=== PATIENT | male | born 1960 | race Caucasian/White ===

== ENCOUNTER → 2017-02-04 | Outpatient (CLI) | payer BC ==
[~2017-02-04] MED LIST: BUPR300T34 PO; DIVA125C5 PO; QUET1TAB8 PO
== END ==
LOC: M LAB 16:00
PROVIDERS: ATTEND Psychiatry & Neurology Psychiatry
DX: Z53.8 Procedure and treatment not carried out for other reasons (principal)

== ENCOUNTER → 2017-02-08 | Outpatient (CLI) | payer BC ==
[2017-02-08 12:14] LABS: MEAN CORPUSCULAR HEMOGLOBIN 32.9 pg (27.0-33.0); MEAN CORPUSCULAR HGB CONC 34.4 g/dl (32.0-36.5); MEAN CORPUSCULAR VOLUME 95.7 fl (80.0-96.0); RED CELL DISTRIBUTION WIDTH 12.3 % (11.5-14.5); WHITE BLOOD COUNT 2.9 K/mm3 (4.0-10.0)
[2017-02-08 12:28] LABS: ALBUMIN 3.5 GM/DL (3.2-5.2); BILIRUBIN,DIRECT 0.1 MG/DL (0.0-0.2); BILIRUBIN,TOTAL 0.4 MG/DL (0.2-1.0)
== END ==
LOC: M LAB 11:30
PROVIDERS: ATTEND Psychiatry & Neurology Psychiatry
DX: Z79.899 Other long term (current) drug therapy (principal)

== ENCOUNTER → 2017-07-21 | Outpatient (REF) | payer BC ==
[2017-07-21 21:19] LABS: REASON FOR REVIEW COMPREHENSIVE REVIEW
== END ==
LOC: M LAB REF 17:16
PROVIDERS: ATTEND Internal Medicine Medical Oncology
DX: D72.819 Decreased white blood cell count, unspecified (principal)

== ENCOUNTER → 2018-07-04 | Outpatient (CLI) | payer BC ==
[2018-07-04 10:59] LABS: HEMATOCRIT 40.1 % (42.0-52.0); HEMOGLOBIN 13.3 g/dl (13.5-17.5); MEAN CORPUSCULAR HEMOGLOBIN 31.6 pg (27.0-33.0); MEAN CORPUSCULAR HGB CONC 33.2 g/dl (32.0-36.5); MEAN CORPUSCULAR VOLUME 95.2 fl (80.0-96.0); PLATELET COUNT, AUTOMATED 258 10^3/uL (150-450); RED BLOOD COUNT 4.21 10^6/uL (4.30-6.10); RED CELL DISTRIBUTION WIDTH 12.9 % (11.5-14.5)
[2018-07-04 11:23] LABS: ALBUMIN 3.7 GM/DL (3.2-5.2); ALBUMIN/GLOBULIN RATIO 1.16 (1.00-1.93); ALKALINE PHOSPHATASE 77 U/L (45-117); ALT/SGPT 35 U/L (12-78); AST/SGOT 15 U/L (7-37); BILIRUBIN,DIRECT < 0.1 MG/DL (0.0-0.2); BILIRUBIN,TOTAL 0.2 MG/DL (0.2-1.0); CHOLESTEROL LEVEL 192 MG/DL (<200); CHOLESTEROL RISK RATIO 5.818 (<5); GLUCOSE, FASTING 82 MG/DL (70-100); HDL CHOLESTEROL 33 MG/DL (>40); LDL CHOLESTEROL 133 MG/DL (<100); NON-HDL-C 159 MG/DL; TOTAL PROTEIN 6.9 GM/DL (6.4-8.2); TRIGLYCERIDES LEVEL 130 MG/DL (<150); VALPROIC ACID (DEPAKOTE) 78.2 UG/ML (50.0-100.0)
[2018-07-04 14:06] LABS: ESTIMATED AVERAGE GLUCOSE 111 MG/DL (60-110); HEMOGLOBIN A1c 5.5 %
== END ==
LOC: M LAB 10:18
DX: Z51.81 Encounter for therapeutic drug level monitoring (principal); Z79.899 Other long term (current) drug therapy
CPT/HCPCS: 82947

== ENCOUNTER → 2018-11-16 | Outpatient (CLI) | payer BC ==
[~2018-11-16] MED LIST changes: -DIVA125C5 PO; +DIVA1CAP PO; +GASTROGRAFIN SOLUTION 30ML (Q9963) As Ordered ONE; +ISOVUE-370 76% 100ML VIAL (Q9967) As Ordered ONE; +ZYLO300T6 PO
--- NOTE | 2018-11-17 07:21 | REP ---
Clinical: History of lymphoproliferative disease. Technique: Axial contrast enhanced images from the lung bases to the pubic symphysis using oral (per protocol) and 100 ml Isovue 370 intravenous contrast material with precontrast images of the abdomen as well as coronal and sagittal re-formations. Comparison: None. Findings: Lung bases are clear. Visualized heart and pericardium are normal. Liver, spleen, pancreas, gallbladder, and bilateral adrenal glands appear normal. Right kidney includes 1 mm nonobstructing calculus (image 42). Left kidney includes suspected 1 cm peripelvic cyst as well as 2 cm exophytic lateral cortical cyst. The enteric system is without obstruction or acute inflammatory process. Colonic diverticula noted without acute diverticulitis. Pelvis demonstrates normal bladder and age appropriate prostate/seminal vesicles. No ascites. 2.5 cm fat containing periumbilical hernia identified along with small fat containing left inguinal hernia. No ascites. No free air. No adenopathy. Abdominal aorta without aneurysm or dissection. Musculoskeletal structures are intact without focal osseous abnormality. Impression: 1. No evidence for mass lesion or adenopathy. 2. Nonacute renal findings as described above. 3. Scattered colonic diverticula without acute diverticulitis. 4. Fat containing periumbilical and small left inguinal hernias noted. Electronically Signed by Jermaine Ruth MD 11/17/2018 07:12 A
== END ==
LOC: M RAD 12:37
PROVIDERS: ATTEND Internal Medicine Hematology & Oncology
DX: D47.9 Neoplasm of uncertain behavior of lymphoid, hematopoietic and related tissue, unspecified (principal)
CPT/HCPCS: 74178; Q9963; Q9967

== ENCOUNTER → 2019-01-27 | Outpatient (CLI) | payer BC ==
[~2019-01-27] MED LIST changes: -GASTROGRAFIN SOLUTION 30ML (Q9963) As Ordered ONE; -ISOVUE-370 76% 100ML VIAL (Q9967) As Ordered ONE
[2019-01-27 17:09] LABS: ALBUMIN 3.7 GM/DL (3.2-5.2); ALT/SGPT 28 U/L (12-78); BILIRUBIN,TOTAL 0.3 MG/DL (0.2-1.0); BLOOD UREA NITROGEN 13 MG/DL (7-18); CALCIUM LEVEL 8.7 MG/DL (8.5-10.1); CARBON DIOXIDE LEVEL 29 MEQ/L (21-32); CHLORIDE LEVEL 104 MEQ/L (98-107); CHOLESTEROL LEVEL 182 MG/DL (<200); CHOLESTEROL RISK RATIO 5.687 (<5); CREATININE FOR GFR 1.01 MG/DL (0.70-1.30); GLOMERULAR FILTRATION RATE > 60.0 (>56); GLUCOSE, FASTING 76 MG/DL (70-100); HDL CHOLESTEROL 32 MG/DL (>40); LDL CHOLESTEROL 126 MG/DL (<100); NON-HDL-C 150 MG/DL; POTASSIUM SERUM 4.2 MEQ/L (3.5-5.1); SODIUM LEVEL 139 MEQ/L (136-145); TOTAL PROTEIN 7.4 GM/DL (6.4-8.2); TRIGLYCERIDES LEVEL 122 MG/DL (<150); URIC ACID 7.6 MG/DL (3.5-7.2)
[2019-01-27 18:40] LABS: HEMOGLOBIN A1c 5.5 %
== END ==
LOC: M LAB 15:31
PROVIDERS: ATTEND Family Medicine
DX: Z13.1 Encounter for screening for diabetes mellitus (principal); Z13.220 Encounter for screening for lipoid disorders; Z12.5 Encounter for screening for malignant neoplasm of prostate; E79.0 Hyperuricemia without signs of inflammatory arthritis and tophaceous disease
CPT/HCPCS: 36415; 80053; 80061; 83036; 84550; G0103

== ENCOUNTER → 2019-07-06 | Outpatient (CLI) | payer BC ==
[2019-07-06 15:06] LABS: HEMATOCRIT 40.8 % (42.0-52.0); HEMOGLOBIN 13.9 g/dl (13.5-17.5); MEAN CORPUSCULAR HEMOGLOBIN 32.1 pg (27.0-33.0); MEAN CORPUSCULAR HGB CONC 34.1 g/dl (32.0-36.5); MEAN CORPUSCULAR VOLUME 94.2 fl (80.0-96.0); PLATELET COUNT, AUTOMATED 248 10^3/uL (150-450); RED BLOOD COUNT 4.33 10^6/uL (4.30-6.10); WHITE BLOOD COUNT 3.5 10^3/uL (4.0-10.0)
[2019-07-06 15:17] LABS: ALBUMIN 3.9 GM/DL (3.2-5.2); ALT/SGPT 44 U/L (12-78); BILIRUBIN,DIRECT < 0.1 MG/DL (0.0-0.2); BILIRUBIN,TOTAL 0.4 MG/DL (0.2-1.0); CHOLESTEROL LEVEL 246 MG/DL (<200); CHOLESTEROL RISK RATIO 7.687 (<5); GLUCOSE, FASTING 81 MG/DL (70-100); HDL CHOLESTEROL 32 MG/DL (>40); LDL CHOLESTEROL 147 MG/DL (<100); NON-HDL-C 214 MG/DL; TOTAL PROTEIN 7.3 GM/DL (6.4-8.2); TRIGLYCERIDES LEVEL 334 MG/DL (<150); VALPROIC ACID (DEPAKOTE) 67.8 UG/ML (50.0-100.0)
[2019-07-06 15:47] LABS: HEMOGLOBIN A1c 5.7 %
== END ==
LOC: M LAB 14:12
PROVIDERS: ATTEND Psychiatry & Neurology Psychiatry
DX: Z51.81 Encounter for therapeutic drug level monitoring (principal); Z79.899 Other long term (current) drug therapy

== ENCOUNTER → 2020-03-25 | Outpatient (CLI) | payer BC ==
[~2020-03-25] MED LIST changes: -BUPR300T34 PO; +BUPR300T92 PO; +QUET100T2 PO; -QUET1TAB8 PO
[2020-03-25 18:48] LABS: ALBUMIN 3.8 GM/DL (3.2-5.2); ALT/SGPT 25 U/L (12-78); BILIRUBIN,TOTAL 0.3 MG/DL (0.2-1.0); BLOOD UREA NITROGEN 18 MG/DL (7-18); CALCIUM LEVEL 9.1 MG/DL (8.5-10.1); CARBON DIOXIDE LEVEL 30 MEQ/L (21-32); CHLORIDE LEVEL 108 MEQ/L (98-107); CHOLESTEROL LEVEL 197 MG/DL (<200); CHOLESTEROL RISK RATIO 6.566 (<5); CREATININE FOR GFR 0.95 MG/DL (0.70-1.30); CREATININE, URINE 92.8 MG/DL; FREE T4 0.96 NG/DL (0.76-1.46); GLOMERULAR FILTRATION RATE > 60.0 (>56); GLUCOSE, FASTING 95 MG/DL (70-100); HDL CHOLESTEROL 30 MG/DL (>40); LDL CHOLESTEROL 136 MG/DL (<100); MALB URINE SIEMENS < 5.0 MG/L; MAU/CREAT RATIO 5.3 MCG/MG (0.0-30.0); NON-HDL-C 167 MG/DL; POTASSIUM SERUM 4.4 MEQ/L (3.5-5.1); SODIUM LEVEL 143 MEQ/L (136-145); TOTAL PROTEIN 7.3 GM/DL (6.4-8.2); TRIGLYCERIDES LEVEL 157 MG/DL (<150)
== END ==
LOC: M WUC 10:07
PROVIDERS: ATTEND Nurse Practitioner Family
DX: E78.00 Pure hypercholesterolemia, unspecified (principal); E79.0 Hyperuricemia without signs of inflammatory arthritis and tophaceous disease; E66.09 Other obesity due to excess calories

== ENCOUNTER → 2020-06-17 | Outpatient (CLI) | payer BC ==
[2020-06-17 12:58] LABS: HEMATOCRIT 42.3 % (42.0-52.0); HEMOGLOBIN 13.8 g/dl (13.5-17.5); MEAN CORPUSCULAR HEMOGLOBIN 31.5 pg (27.0-33.0); MEAN CORPUSCULAR HGB CONC 32.6 g/dl (32.0-36.5); MEAN CORPUSCULAR VOLUME 96.6 fl (80.0-96.0); PLATELET COUNT, AUTOMATED 211 10^3/uL (150-450); RED BLOOD COUNT 4.38 10^6/uL (4.30-6.10); WHITE BLOOD COUNT 2.9 10^3/uL (4.0-10.0)
[2020-06-17 13:01] LABS: ALBUMIN 3.5 GM/DL (3.2-5.2); ALT/SGPT 34 U/L (12-78); BILIRUBIN,DIRECT < 0.1 MG/DL (0.0-0.2); BILIRUBIN,TOTAL 0.3 MG/DL (0.2-1.0); CHOLESTEROL LEVEL 217 MG/DL (<200); GLUCOSE, FASTING 92 MG/DL (70-100); HDL CHOLESTEROL 31 MG/DL (>40); LDL CHOLESTEROL 147 MG/DL (<100); NON-HDL-C 186 MG/DL; TOTAL PROTEIN 6.9 GM/DL (6.4-8.2); TRIGLYCERIDES LEVEL 194 MG/DL (<150); VALPROIC ACID (DEPAKOTE) 65.4 UG/ML (50.0-100.0)
[2020-06-17 14:00] LABS: HEMOGLOBIN A1c 5.2 %
== END ==
LOC: M WUC 10:06
PROVIDERS: ATTEND Psychiatry & Neurology Psychiatry
DX: Z79.899 Other long term (current) drug therapy (principal)

== ENCOUNTER → 2020-10-07 | Outpatient (CLI) | payer BC ==
[2020-10-07 12:03] LABS: HEMOGLOBIN A1c 5.4 %
[2020-10-07 12:10] LABS: ALBUMIN 3.8 GM/DL (3.2-5.2); ALT/SGPT 26 U/L (12-78); BILIRUBIN,TOTAL 0.2 MG/DL (0.2-1.0); BLOOD UREA NITROGEN 19 MG/DL (7-18); CALCIUM LEVEL 9.1 MG/DL (8.5-10.1); CARBON DIOXIDE LEVEL 33 MEQ/L (21-32); CHLORIDE LEVEL 106 MEQ/L (98-107); CHOLESTEROL LEVEL 168 MG/DL (<200); CHOLESTEROL RISK RATIO 4.666 (<5); CREATININE FOR GFR 0.94 MG/DL (0.70-1.30); GLOMERULAR FILTRATION RATE > 60.0 (>56); GLUCOSE, FASTING 90 MG/DL (70-100); HDL CHOLESTEROL 36 MG/DL (>40); LDL CHOLESTEROL 114 MG/DL (<100); NON-HDL-C 132 MG/DL; POTASSIUM SERUM 4.2 MEQ/L (3.5-5.1); SODIUM LEVEL 143 MEQ/L (136-145); TOTAL PROTEIN 7.4 GM/DL (6.4-8.2); TRIGLYCERIDES LEVEL 88 MG/DL (<150); URIC ACID 6.6 MG/DL (3.5-7.2)
== END ==
LOC: M LAB 10:45
PROVIDERS: ATTEND Nurse Practitioner Family
DX: E78.00 Pure hypercholesterolemia, unspecified (principal); E79.0 Hyperuricemia without signs of inflammatory arthritis and tophaceous disease; R73.03 Prediabetes

== ENCOUNTER → 2021-05-08 | Outpatient (CLI) | payer BC ==
[2021-05-08 20:25] LABS: ALBUMIN 3.9 GM/DL (3.2-5.2); ALT/SGPT 41 U/L (12-78); BILIRUBIN,TOTAL 0.4 MG/DL (0.2-1.0); BLOOD UREA NITROGEN 17 MG/DL (7-18); CALCIUM LEVEL 9.7 MG/DL (8.8-10.2); CARBON DIOXIDE LEVEL 28 MEQ/L (21-32); CHLORIDE LEVEL 106 MEQ/L (98-107); CREATININE FOR GFR 1.02 MG/DL (0.70-1.30); GLOMERULAR FILTRATION RATE > 60.0 (>49); GLUCOSE, FASTING 84 MG/DL (70-100); POTASSIUM SERUM 4.2 MEQ/L (3.5-5.1); SODIUM LEVEL 140 MEQ/L (136-145); TOTAL PROTEIN 7.4 GM/DL (6.4-8.2)
== END ==
LOC: M WUC 15:13
PROVIDERS: ATTEND Nurse Practitioner Family
DX: E78.00 Pure hypercholesterolemia, unspecified (principal); R73.03 Prediabetes

== ENCOUNTER → 2021-06-13 | Outpatient (CLI) | payer BC | LOC: M LABSMTC 09:19 | PROVIDERS: ATTEND Anesthesiology | DX: Z01.818 Encounter for other preprocedural examination (principal); Z11.52 Encounter for screening for COVID-19 ==

== ENCOUNTER 2021-06-18 10:53 | Day surgery (SDC) | payer BC ==
[~2021-06-18] VITALS: Ht 180.3 cm; Wt 110.7 kg
[~2021-06-18 10:53] MED LIST changes: +NS 1,000 ML IV ONE
[2021-06-18] MEDS ORDERED: propofoL 200 MG/20 ML VIAL As Ordered ONE (12:30)
--- NOTE | 2021-06-18 12:51 | ROOR ---
Patient Name: Payam López Procedure Date: 06/18/2021 12:26 PM Date of : 1960 Age: 61 Room: [facility] Gender: Male Note Status: Finalized Procedure: Total Colonoscopy to Cecum Indications: High risk colon cancer surveillance: Personal history of colonic polyps Providers: Jesus Beth MD Referring MD: Shefali Dunn NP Requesting Provider: Medicines: Monitored Anesthesia Care Complications: No immediate complications. Procedure: Pre-Anesthesia Assessment: - The heart rate, respiratory rate, oxygen saturations, blood pressure, adequacy of pulmonary ventilation, and response to care were monitored throughout the procedure. The Colonoscope was introduced through the anus and advanced to the cecum, identified by appendiceal orifice and ileocecal valve. The colonoscopy was performed without difficulty. The patient tolerated the procedure well. The quality of the bowel preparation was excellent. Findings: The perianal and digital rectal examinations were normal. Non-bleeding internal hemorrhoids were found during retroflexion. The hemorrhoids were small and Grade I (internal hemorrhoids that do not prolapse). No other significant abnormalities were identified in a careful examination of the remainder of the colon. The exam was otherwise without abnormality on direct and retroflexion views. Impression: - Non-bleeding internal hemorrhoids. - The examination was otherwise normal on direct and retroflexion views. - No specimens collected. - The exam was otherwise normal to the cecum. Recommendation: - Patient has a contact number available for emergencies. The signs and symptoms of potential delayed complications were discussed with the patient. Return to normal activities tomorrow. Written discharge instructions were provided to the patient. - High fiber diet. - Discharge patient to home. - Continue present medications. - Repeat colonoscopy in 5 years for screening purposes. - Return to referring physician. - The findings and recommendations were discussed with the patient. Procedure Code(s): --- Professional --- G0105, Colorectal cancer screening; colonoscopy on individual at high risk Diagnosis Code(s): --- Professional --- Z86.010, Personal history of colonic polyps K64.0, First degree hemorrhoids CPT copyright 2019 [employer]. All rights reserved. The codes documented in this report are preliminary and upon ship joiner review may be revised to meet current compliance requirements. Jesus Beth MD Jesus Beth MD 06/18/2021 12:50:47 PM Electronically signed by Jesus Beth MD Number of Addenda: 0 Note Initiated On: 06/18/2021 12:26 PM Estimated Blood Loss: Estimated blood loss: none.
[2021-06-18 13:16] VITALS: BP 157/81
== END 2021-06-18 13:19 | disposition home or self-care (01) ==
LOC: M OPP 10:53
PROVIDERS: ATTEND Internal Medicine Gastroenterology
DX: Z12.11 Encounter for screening for malignant neoplasm of colon (principal); Z86.010 Personal history of colon polyps; K64.8 Other hemorrhoids; Z79.899 Other long term (current) drug therapy

== ENCOUNTER → 2021-09-12 | Outpatient (CLI) | payer BC ==
[~2021-09-12] MED LIST changes: -NS 1,000 ML IV ONE
[2021-09-12 17:12] LABS: BASO % 0.5 % (0.0-1.0); EOS # 0.1 10^3/uL (0.0-0.5); EOS % 2.9 % (0.0-3.0); HEMATOCRIT 41.1 % (42.0-52.0); HEMOGLOBIN 13.5 g/dl (13.5-17.5); LYMPH # 1.9 10^3/uL (1.5-5.0); LYMPH % 49.5 % (24.0-44.0); MEAN CORPUSCULAR HEMOGLOBIN 31.2 pg (27.0-33.0); MEAN CORPUSCULAR HGB CONC 32.8 g/dl (32.0-36.5); MEAN CORPUSCULAR VOLUME 94.9 fl (80.0-96.0); MONO # 1.2 10^3/uL (0.0-0.8); MONO % 31.5 % (2.0-8.0); NEUTROPHILS % 15.3 % (36.0-66.0); PLATELET COUNT, AUTOMATED 278 10^3/uL (150-450); RED BLOOD COUNT 4.33 10^6/uL (4.30-6.10); WHITE BLOOD COUNT 3.8 10^3/uL (4.0-10.0)
[2021-09-12 17:53] LABS: ALBUMIN 4.1 GM/DL (3.2-5.2); ALT/SGPT 37 U/L (12-78); BILIRUBIN,TOTAL 0.4 MG/DL (0.2-1.0); BLOOD UREA NITROGEN 23 MG/DL (7-18); CALCIUM LEVEL 9.7 MG/DL (8.8-10.2); CARBON DIOXIDE LEVEL 31 MEQ/L (21-32); CHLORIDE LEVEL 102 MEQ/L (98-107); CHOLESTEROL LEVEL 239 MG/DL (<200); CHOLESTEROL RISK RATIO 7.242 (<5); CREATININE FOR GFR 1.05 MG/DL (0.70-1.30); GLOMERULAR FILTRATION RATE > 60.0 (>49); GLUCOSE, FASTING 77 MG/DL (70-100); HDL CHOLESTEROL 33 MG/DL (>40); LDL CHOLESTEROL 163 MG/DL (<100); NON-HDL-C 206 MG/DL; POTASSIUM SERUM 4.1 MEQ/L (3.5-5.1); SODIUM LEVEL 140 MEQ/L (136-145); TOTAL PROTEIN 7.6 GM/DL (6.4-8.2); TRIGLYCERIDES LEVEL 214 MG/DL (<150); URIC ACID 8.1 MG/DL (3.5-7.2)
[2021-09-12 18:43] LABS: NEUTROPHILS # 0.6 10^3/uL (1.5-8.5)
[2021-09-12 19:40] LABS: HEMOGLOBIN A1c 5.4 %
== END ==
LOC: M PLALAB 15:32
PROVIDERS: ATTEND Nurse Practitioner Family
DX: R73.03 Prediabetes (principal)

== ENCOUNTER → 2022-03-05 | Outpatient (CLI) | payer BC ==
[~2022-03-05] MED LIST changes: +DIVA125C6 PO; -DIVA1CAP PO
[2022-03-05 19:21] LABS: BASO % 0.5 % (0.0-1.0); EOS # 0.2 10^3/uL (0.0-0.5); EOS % 3.8 % (0.0-3.0); HEMATOCRIT 40.1 % (42.0-52.0); HEMOGLOBIN 13.4 g/dl (13.5-17.5); LYMPH # 2.1 10^3/uL (1.5-5.0); LYMPH % 53.3 % (24.0-44.0); MEAN CORPUSCULAR HEMOGLOBIN 32.1 pg (27.0-33.0); MEAN CORPUSCULAR HGB CONC 33.4 g/dl (32.0-36.5); MEAN CORPUSCULAR VOLUME 96.2 fl (80.0-96.0); MONO # 1.2 10^3/uL (0.0-0.8); MONO % 29.7 % (2.0-8.0); NEUTROPHILS % 12.4 % (36.0-66.0); PLATELET COUNT, AUTOMATED 220 10^3/uL (150-450); RED BLOOD COUNT 4.17 10^6/uL (4.30-6.10); WHITE BLOOD COUNT 3.9 10^3/uL (4.0-10.0)
[2022-03-05 19:44] LABS: ALBUMIN 3.9 GM/DL (3.2-5.2); ALT/SGPT 29 U/L (12-78); BILIRUBIN,TOTAL 0.3 MG/DL (0.2-1.0); BLOOD UREA NITROGEN 18 MG/DL (7-18); CALCIUM LEVEL 9.6 MG/DL (8.8-10.2); CARBON DIOXIDE LEVEL 30 MEQ/L (21-32); CHLORIDE LEVEL 106 MEQ/L (98-107); CHOLESTEROL LEVEL 207 MG/DL (<200); CHOLESTEROL RISK RATIO 6.468 (<5); GLOMERULAR FILTRATION RATE > 60.0 (>49); GLUCOSE, FASTING 88 MG/DL (70-100); HDL CHOLESTEROL 32 MG/DL (>40); LDL CHOLESTEROL 122 MG/DL (<100); NEUTROPHILS # 0.5 10^3/uL (1.5-8.5); NON-HDL-C 175 MG/DL; SODIUM LEVEL 140 MEQ/L (136-145); TOTAL PROTEIN 7.3 GM/DL (6.4-8.2); TRIGLYCERIDES LEVEL 264 MG/DL (<150); URIC ACID 7.3 MG/DL (3.5-7.2)
[2022-03-05 19:47] LABS: HEMOGLOBIN A1c 5.4 %
== END ==
LOC: M WUC 15:24
PROVIDERS: ATTEND Nurse Practitioner Family
DX: R73.03 Prediabetes (principal); D72.820 Lymphocytosis (symptomatic); E78.5 Hyperlipidemia, unspecified; E79.0 Hyperuricemia without signs of inflammatory arthritis and tophaceous disease

== ENCOUNTER → 2022-05-09 | Outpatient (CLI) | payer BC ==
[2022-05-09 19:54] LABS: HEMATOCRIT 41.4 % (42.0-52.0); HEMOGLOBIN 13.8 g/dl (13.5-17.5); MEAN CORPUSCULAR HEMOGLOBIN 31.5 pg (27.0-33.0); MEAN CORPUSCULAR HGB CONC 33.3 g/dl (32.0-36.5); MEAN CORPUSCULAR VOLUME 94.5 fl (80.0-96.0); PLATELET COUNT, AUTOMATED 234 10^3/uL (150-450); RED BLOOD COUNT 4.38 10^6/uL (4.30-6.10); WHITE BLOOD COUNT 3.9 10^3/uL (4.0-10.0)
[2022-05-09 20:10] LABS: HEMOGLOBIN A1c 5.5 %
[2022-05-09 20:38] LABS: BILIRUBIN,DIRECT 0.1 MG/DL (0.0-0.2); BILIRUBIN,TOTAL 0.5 MG/DL (0.2-1.0); CHOLESTEROL RISK RATIO 4.631 (<5); TOTAL PROTEIN 7.6 GM/DL (6.4-8.2); VALPROIC ACID (DEPAKOTE) 60.4 UG/ML (50.0-100.0)
== END ==
LOC: M WUC 15:48
PROVIDERS: ATTEND Psychiatry & Neurology Psychiatry
DX: Z51.81 Encounter for therapeutic drug level monitoring (principal); Z79.899 Other long term (current) drug therapy

== ENCOUNTER → 2022-07-30 | Outpatient (CLI) | payer BC | LOC: M PLAIMG 10:30 | PROVIDERS: ATTEND Nurse Practitioner Family | DX: M54.9 Dorsalgia, unspecified (principal) ==

== ENCOUNTER → 2022-09-11 | Outpatient (CLI) | payer BC ==
[~2022-09-11] MED LIST changes: +ATIV1TAB7; +OLAN1TAB20
[2022-09-11 20:01] LABS: BASO % 0.5 % (0.0-1.0); EOS # 0.2 10^3/uL (0.0-0.5); EOS % 4.1 % (0.0-3.0); HEMATOCRIT 39.6 % (42.0-52.0); HEMOGLOBIN 13.1 g/dl (13.5-17.5); LYMPH # 1.7 10^3/uL (1.5-5.0); LYMPH % 47.1 % (24.0-44.0); MEAN CORPUSCULAR HGB CONC 33.1 g/dl (32.0-36.5); MEAN CORPUSCULAR VOLUME 96.6 fl (80.0-96.0); MONO # 1.2 10^3/uL (0.0-0.8); MONO % 32.3 % (2.0-8.0); NEUTROPHILS % 15.5 % (36.0-66.0); PLATELET COUNT, AUTOMATED 244 10^3/uL (150-450); URIC ACID 9.2 MG/DL (3.7-9.2); WHITE BLOOD COUNT 3.7 10^3/uL (4.0-10.0)
[2022-09-11 20:05] LABS: ALBUMIN 3.7 G/DL (3.2-5.2); ALKALINE PHOSPHATASE 83 U/L (46-116); ALT/SGPT 40 U/L (7.0-40); AST/SGOT 22 U/L (<34); BILIRUBIN,TOTAL 0.4 MG/DL (0.3-1.2); BLOOD UREA NITROGEN 27 MG/DL (9-23); CALCIUM LEVEL 9.3 MG/DL (8.3-10.6); CARBON DIOXIDE LEVEL 29 MMOL/L (20-31); CHLORIDE LEVEL 104 MMOL/L (98-107); CHOLESTEROL LEVEL 150 MG/DL (<200); CREATININE FOR GFR 0.96 MG/DL (0.70-1.30); GLOMERULAR FILTRATION RATE > 60.0 (>49); GLUCOSE, FASTING 83 MG/DL (74-106); HDL CHOLESTEROL 29.4 MG/DL (>40); LDL CHOLESTEROL 92.4 MG/DL (<100); NON-HDL-C 121 MG/DL; SODIUM LEVEL 142 MMOL/L (136-145); TOTAL PROTEIN 6.6 G/DL (5.7-8.2); TRIGLYCERIDES LEVEL 141 MG/DL (<150)
[2022-09-11 20:27] LABS: CREATININE, URINE 157.6 MG/DL; MAU/CREAT RATIO 1.9 MCG/MG (0.0-30.0)
[2022-09-11 20:40] LABS: NEUTROPHILS # 0.6 10^3/uL (1.5-8.5)
[2022-09-11 20:52] LABS: HEMOGLOBIN A1c 5.2 % (4.0-6.0)
== END ==
LOC: M WUC 15:31
PROVIDERS: ATTEND Nurse Practitioner Family
DX: R73.03 Prediabetes (principal)

== ENCOUNTER 2022-11-29 16:03 | Inpatient (IN) | payer BC ==
[~2022-11-29] VITALS: Ht 180.3 cm; Wt 102.6 kg
[2022-11-29] MEDS ORDERED: LORazepam 1 MG TAB PO STA (16:41)
[2022-11-29 17:17] LABS: HEMATOCRIT 44.4 % (42.0-52.0); MEAN CORPUSCULAR HGB CONC 33.8 g/dl (32.0-36.5); MEAN CORPUSCULAR VOLUME 94.7 fl (80.0-96.0); PLATELET COUNT, AUTOMATED 213 10^3/uL (150-450); RED BLOOD COUNT 4.69 10^6/uL (4.30-6.10); WHITE BLOOD COUNT 4.1 10^3/uL (4.0-10.0)
[2022-11-29] MEDS ORDERED: LURA40TA2 PO (17:22)
[2022-11-29 17:30] LABS: ETHYL ALCOHOL (ETHANOL) 0.006 % (0.000-0.010)
[2022-11-29 17:31] LABS: ACETAMINOPHEN LEVEL < 2.0 UG/ML (10.0-20.0); ALBUMIN 3.9 G/DL (3.2-5.2); ALKALINE PHOSPHATASE 69 U/L (46-116); ALT/SGPT 18 U/L (7.0-40); AST/SGOT 9 U/L (<34); BILIRUBIN,DIRECT 0.3 MG/DL (<0.4); BILIRUBIN,TOTAL 0.6 MG/DL (0.3-1.2); BLOOD UREA NITROGEN 19 MG/DL (9-23); CALCIUM LEVEL 9.5 MG/DL (8.3-10.6); CARBON DIOXIDE LEVEL 30 MMOL/L (20-31); CHLORIDE LEVEL 106 MMOL/L (98-107); CREATININE FOR GFR 0.96 MG/DL (0.70-1.30); GLOMERULAR FILTRATION RATE > 60.0 (>49); GLUCOSE, FASTING 81 MG/DL (74-106); POTASSIUM SERUM 3.8 MMOL/L (3.5-5.1); SALICYLATE LEVEL < 3.0 MG/DL (<30); SODIUM LEVEL 142 MMOL/L (136-145); TOTAL PROTEIN 6.7 G/DL (5.7-8.2)
[2022-11-29 17:34] LABS: THYROID STIMULATING HORMONE 1.003 uIU/ML (0.55-4.78)
[2022-11-29 17:41] LABS: AMPHETAMINES LEVEL URINE NEGATIVE (NEGATIVE); BARBITURATES URINE NEGATIVE (NEGATIVE); BENZODIAZEPINES URINE NEGATIVE (NEGATIVE); COCAINE METABOLITE URINE NEGATIVE (NEGATIVE); METHADONE URINE NEGATIVE (NEGATIVE); OPIATES URINE NEGATIVE (NEGATIVE); PHENCYCLIDINE URINE NEGATIVE (NEGATIVE)
[2022-11-29 17:42] LABS: CANNABINOIDS URINE NEGATIVE (NEGATIVE)
[2022-11-29] MEDS ORDERED: DIVA500T94 PO (21:00)
[2022-11-29] MEDS ORDERED: LORA1TAB4 PO (21:00)
[2022-11-29] MEDS ORDERED: ATOR1TAB21 PO (21:00)
[2022-11-29] MEDS ORDERED: HOME MED LIST COMPLETE! XX SCH (21:05)
[2022-11-30] MEDS ORDERED: ACETAMINOPHEN TAB 650MG DOSE (2X325MG) PO PRN (03:30)
[2022-11-30] MEDS ORDERED: traZODone 50 MG TAB PO PRN (03:30)
[2022-11-30] MEDS ORDERED: MAALOX 30 ML SUSP *UDC PO PRN (03:30)
[2022-11-30] MEDS ORDERED: MOM 30ML SUSPENSION UDC PO PRN (03:30)
[2022-11-30 04:06] VITALS: BP 139/92
[2022-11-30] MEDS: LURASIDONE HCL 40MG TAB (LATUDA) PO SCH ×2 (04:22→17:09)
[2022-11-30] MEDS: DIVALPROEX 500 MG TAB PO SCH ×2 (04:22→20:06)
[2022-11-30] MEDS: LORazepam 1 MG TAB PO SCH (08:33)
[2022-11-30] MEDS: buPROPion **XL** TABLET 150MG (WELLBUTRIN XL) PO SCH (08:33)
[2022-11-30 19:07] VITALS: BP 143/90
[2022-11-30] MEDS: ATORVASTATIN 20 MG TAB PO SCH (20:06)
[2022-12-01 06:31] VITALS: BP 144/88
[2022-12-01] MEDS: LORazepam 1 MG TAB PO SCH (09:00)
[2022-12-01] MEDS: buPROPion **XL** TABLET 150MG (WELLBUTRIN XL) PO SCH (09:00)
[2022-12-01] MEDS: LURASIDONE HCL 40MG TAB (LATUDA) PO SCH (18:06)
[2022-12-01 18:33] VITALS: BP 128/94
[2022-12-01] MEDS: DIVALPROEX 500 MG TAB PO SCH (20:19)
[2022-12-01] MEDS: ATORVASTATIN 20 MG TAB PO SCH (20:19)
[2022-12-01] MEDS: traZODone 100 MG TAB PO PRN (20:19)
[2022-12-02] MEDS ORDERED: QUEtiapine FUMARATE 50MG TAB PO ONE
[2022-12-02 06:24] VITALS: BP 113/59
[2022-12-02] MEDS: LORazepam 1 MG TAB PO SCH (08:28)
[2022-12-02] MEDS: buPROPion **XL** TABLET 150MG (WELLBUTRIN XL) PO SCH (08:28)
[2022-12-02] MEDS: LURASIDONE HCL 40MG TAB (LATUDA) PO SCH (17:17)
[2022-12-02 18:59] VITALS: BP 150/85
[2022-12-02] MEDS: traZODone 100 MG TAB PO PRN (20:39)
[2022-12-02] MEDS: ATORVASTATIN 20 MG TAB PO SCH (20:39)
[2022-12-02] MEDS: QUEtiapine FUMARATE 50MG TAB PO SCH (20:39)
[2022-12-02] MEDS: DIVALPROEX 500 MG TAB PO SCH (20:40)
[2022-12-03 06:50] VITALS: BP 133/71
[2022-12-03] MEDS: LORazepam 1 MG TAB PO SCH (08:25)
[2022-12-03] MEDS: buPROPion **XL** TABLET 150MG (WELLBUTRIN XL) PO SCH (08:25)
[2022-12-03 16:27] VITALS: BP 134/72
[2022-12-03] MEDS: LURASIDONE HCL 40MG TAB (LATUDA) PO SCH (18:04)
[2022-12-03] MEDS: DIVALPROEX 500 MG TAB PO SCH (20:10)
[2022-12-03] MEDS: traZODone 100 MG TAB PO PRN (20:10)
[2022-12-03] MEDS: QUEtiapine FUMARATE 50MG TAB PO SCH (20:10)
[2022-12-03] MEDS: ATORVASTATIN 20 MG TAB PO SCH (20:10)
[2022-12-04 06:42] VITALS: BP 131/68
[2022-12-04] MEDS: LORazepam 1 MG TAB PO SCH (08:12)
[2022-12-04] MEDS: buPROPion **XL** TABLET 150MG (WELLBUTRIN XL) PO SCH (08:12)
[2022-12-04 16:39] VITALS: BP 133/69
[2022-12-04] MEDS: LURASIDONE 20 MG TAB (LATUDA) PO SCH (18:01)
[2022-12-04] MEDS: DIVALPROEX 500 MG TAB PO SCH (20:24)
[2022-12-04] MEDS: traZODone 100 MG TAB PO PRN (20:24)
[2022-12-04] MEDS: QUEtiapine FUMARATE 50MG TAB PO SCH (20:24)
[2022-12-04] MEDS: ATORVASTATIN 20 MG TAB PO SCH (20:24)
[2022-12-05 06:18] VITALS: BP 139/81
[2022-12-05 07:35] LABS: CHOLESTEROL RISK RATIO 3.96 (<5); HDL CHOLESTEROL 23.7 MG/DL (>40); LDL CHOLESTEROL 53.1 MG/DL (<100); NON-HDL-C 70.3 MG/DL
[2022-12-05] MEDS: LORazepam 1 MG TAB PO SCH (08:24)
[2022-12-05] MEDS: buPROPion **XL** TABLET 150MG (WELLBUTRIN XL) PO SCH (08:24)
[2022-12-05] MEDS: LURASIDONE 20 MG TAB (LATUDA) PO SCH (18:08)
[2022-12-05] MEDS: DIVALPROEX 500 MG TAB PO SCH (20:37)
[2022-12-05] MEDS: traZODone 100 MG TAB PO PRN (20:37)
[2022-12-05] MEDS: ATORVASTATIN 20 MG TAB PO SCH (20:37)
[2022-12-05] MEDS: QUEtiapine FUMARATE 25 MG TAB PO SCH (20:38)
[2022-12-06 06:07] VITALS: BP 110/67
[2022-12-06] MEDS: LORazepam 1 MG TAB PO SCH (08:52)
[2022-12-06] MEDS: ESCITALOPRAM OXALATE 5MG TABLET (LEXAPRO) PO SCH (08:53)
[2022-12-06] MEDS: buPROPion **XL** TABLET 150MG (WELLBUTRIN XL) PO SCH (08:53)
[2022-12-06 16:44] VITALS: BP 142/86
[2022-12-06] MEDS: LURASIDONE 20 MG TAB (LATUDA) PO SCH (17:40)
[2022-12-06] MEDS: QUEtiapine FUMARATE 25 MG TAB PO SCH (20:05)
[2022-12-06] MEDS: ATORVASTATIN 20 MG TAB PO SCH (20:05)
[2022-12-06] MEDS: DIVALPROEX 500 MG TAB PO SCH (20:06)
[2022-12-07 06:33] VITALS: BP 147/82
[2022-12-07] MEDS: ESCITALOPRAM OXALATE 5MG TABLET (LEXAPRO) PO SCH (08:13)
[2022-12-07] MEDS: LORazepam 1 MG TAB PO SCH (08:13)
[2022-12-07] MEDS: buPROPion **XL** TABLET 150MG (WELLBUTRIN XL) PO SCH (08:13)
[2022-12-07 16:40] VITALS: BP 143/81
[2022-12-07] MEDS: LURASIDONE 20 MG TAB (LATUDA) PO SCH (17:33)
[2022-12-07] MEDS: DIVALPROEX 500 MG TAB PO SCH (20:03)
[2022-12-07] MEDS: ATORVASTATIN 20 MG TAB PO SCH (20:03)
[2022-12-07] MEDS: QUEtiapine FUMARATE 25 MG TAB PO SCH (20:03)
[2022-12-08 06:45] VITALS: BP 133/63
[2022-12-08] MEDS: LORazepam 1 MG TAB PO SCH (08:15)
[2022-12-08] MEDS: ESCITALOPRAM OXALATE 5MG TABLET (LEXAPRO) PO SCH (08:16)
[2022-12-08] MEDS: buPROPion **XL** TABLET 150MG (WELLBUTRIN XL) PO SCH (08:16)
[2022-12-08 16:53] VITALS: BP 135/89
[2022-12-08] MEDS: LURASIDONE 20 MG TAB (LATUDA) PO SCH (18:16)
[2022-12-08] MEDS: traZODone 100 MG TAB PO PRN (20:16)
[2022-12-08] MEDS: DIVALPROEX 500 MG TAB PO SCH (20:16)
[2022-12-08] MEDS: ATORVASTATIN 20 MG TAB PO SCH (20:16)
[2022-12-08] MEDS: QUEtiapine FUMARATE 25 MG TAB PO SCH (20:17)
[2022-12-09 06:37] VITALS: BP 150/78
[2022-12-09] MEDS: ESCITALOPRAM OXALATE 5MG TABLET (LEXAPRO) PO SCH (08:09)
[2022-12-09] MEDS: LORazepam 1 MG TAB PO SCH (08:09)
[2022-12-09] MEDS: buPROPion **XL** TABLET 150MG (WELLBUTRIN XL) PO SCH (08:10)
[2022-12-09] MEDS ORDERED: TRAZ-257 PO (10:14)
[2022-12-09] MEDS ORDERED: LATU20TA PO (10:14)
[2022-12-09] MEDS ORDERED: DIVA500T94 PO (10:14)
[2022-12-09] MEDS ORDERED: LEXA5TAB13 PO (10:14)
[2022-12-09] MEDS ORDERED: BUPR300T92 PO (10:14)
[2022-12-09] MEDS ORDERED: QUET1TAB17 PO (10:14)
[2022-12-10] MEDS ORDERED: LATU40TA2 PO (13:27)
[2022-12-10] MEDS ORDERED: LATU20TA PO (13:27)
== END 2022-12-09 12:20 | disposition home or self-care (01) | DRG 753 ==
LOC: M ED 16:03 → M ED INP 11-30 03:27 → M PSY 11-30 04:02
PROVIDERS: ADMIT Student in an Organized Health Care Education/Training Program; ATTEND Student in an Organized Health Care Education/Training Program
DX: F31.9 Bipolar disorder, unspecified (principal); E78.5 Hyperlipidemia, unspecified; Z81.8 Family history of other mental and behavioral disorders; G47.00 Insomnia, unspecified; R63.4 Abnormal weight loss; E79.0 Hyperuricemia without signs of inflammatory arthritis and tophaceous disease; F41.1 Generalized anxiety disorder; F60.89 Other specific personality disorders; Z85.79 Personal history of other malignant neoplasms of lymphoid, hematopoietic and related tissues; Z79.899 Other long term (current) drug therapy

== ENCOUNTER → 2023-03-06 | Outpatient (REF) | payer BC ==
[~2023-03-06] MED LIST changes: +ATOR1TAB21 PO; +DIVA500T94 PO; +LATU20TA PO; +LATU40TA2 PO; +LEXA5TAB13 PO; +LORA1TAB23 PO; +LURA40TA2 PO; +QUET1TAB17 PO; +TRAZ-257 PO
[2023-03-06 20:28] LABS: BASO % 0.7 % (0.0-1.0); EOS # 0.2 10^3/uL (0.0-0.5); HEMOGLOBIN 12.8 g/dl (13.5-17.5); LYMPH # 1.9 10^3/uL (1.5-5.0); LYMPH % 45.6 % (24.0-44.0); MEAN CORPUSCULAR HEMOGLOBIN 32.4 pg (27.0-33.0); MEAN CORPUSCULAR HGB CONC 33.7 g/dl (32.0-36.5); MEAN CORPUSCULAR VOLUME 96.2 fl (80.0-96.0); MONO # 0.9 10^3/uL (0.0-0.8); NEUTROPHILS # 1.2 10^3/uL (1.5-8.5); NEUTROPHILS % 27.5 % (36.0-66.0); PLATELET COUNT, AUTOMATED 262 10^3/uL (150-450); RED BLOOD COUNT 3.95 10^6/uL (4.30-6.10); WHITE BLOOD COUNT 4.2 10^3/uL (4.0-10.0)
[2023-03-06 20:33] LABS: URIC ACID 7.8 MG/DL (3.7-9.2)
[2023-03-06 20:36] LABS: ALBUMIN 4.1 G/DL (3.2-5.2); ALKALINE PHOSPHATASE 84 U/L (46-116); ALT/SGPT < 9 U/L (7.0-40); AST/SGOT 21 U/L (<34); BILIRUBIN,TOTAL 0.5 MG/DL (0.3-1.2); BLOOD UREA NITROGEN 19 MG/DL (9-23); CALCIUM LEVEL 9.3 MG/DL (8.3-10.6); CARBON DIOXIDE LEVEL 30 MMOL/L (20-31); CHLORIDE LEVEL 105 MMOL/L (98-107); CHOLESTEROL LEVEL 220 MG/DL (<200); CHOLESTEROL RISK RATIO 7.14 (<5); CREATININE FOR GFR 1.04 MG/DL (0.70-1.30); GLOMERULAR FILTRATION RATE > 60.0 (>49); GLUCOSE, FASTING 81 MG/DL (74-106); HDL CHOLESTEROL 30.8 MG/DL (>40); NON-HDL-C 189.2 MG/DL; POTASSIUM SERUM 4.1 MMOL/L (3.5-5.1); SODIUM LEVEL 140 MMOL/L (136-145); TOTAL PROTEIN 6.9 G/DL (5.7-8.2); TRIGLYCERIDES LEVEL 321 MG/DL (<150)
[2023-03-06 20:39] LABS: HEMOGLOBIN A1c 5.3 % (4.0-6.0)
== END ==
LOC: M LAB REF 20:15
PROVIDERS: ATTEND Nurse Practitioner Family
DX: R73.03 Prediabetes (principal); D72.820 Lymphocytosis (symptomatic); E78.5 Hyperlipidemia, unspecified; E79.0 Hyperuricemia without signs of inflammatory arthritis and tophaceous disease

== ENCOUNTER → 2023-03-19 | Outpatient (CLI) | payer BC ==
[2023-03-19 19:13] LABS: HEMATOCRIT 37.3 % (42.0-52.0); HEMOGLOBIN 12.7 g/dl (13.5-17.5); MEAN CORPUSCULAR HEMOGLOBIN 32.5 pg (27.0-33.0); MEAN CORPUSCULAR VOLUME 95.4 fl (80.0-96.0); PLATELET COUNT, AUTOMATED 199 10^3/uL (150-450); RED BLOOD COUNT 3.91 10^6/uL (4.30-6.10); WHITE BLOOD COUNT 3.3 10^3/uL (4.0-10.0)
[2023-03-19 19:38] LABS: VALPROIC ACID (DEPAKOTE) 76.1 UG/ML (50.0-100.0)
[2023-03-19 19:40] LABS: ALBUMIN 3.8 G/DL (3.2-5.2); BILIRUBIN,DIRECT 0.1 MG/DL (<0.4); BILIRUBIN,TOTAL 0.4 MG/DL (0.3-1.2); CHOLESTEROL RISK RATIO 5.95 (<5); HDL CHOLESTEROL 27.7 MG/DL (>40); LDL CHOLESTEROL 89.7 MG/DL (<100); NON-HDL-C 137.3 MG/DL; TOTAL PROTEIN 6.7 G/DL (5.7-8.2)
[2023-03-19 19:57] LABS: HEMOGLOBIN A1c 5.1 % (4.0-6.0)
== END ==
LOC: M WUC 15:24
PROVIDERS: ATTEND Psychiatry & Neurology Psychiatry
DX: Z79.899 Other long term (current) drug therapy (principal)

== ENCOUNTER → 2023-08-11 | Outpatient (CLI) | payer BC ==
[2023-08-11 19:41] LABS: BASO % 0.8 % (0.0-1.0); EOS # 0.2 10^3/uL (0.0-0.5); EOS % 5.1 % (0.0-3.0); HEMATOCRIT 37.7 % (42.0-52.0); HEMOGLOBIN 12.7 g/dl (13.5-17.5); LYMPH # 1.9 10^3/uL (1.5-5.0); LYMPH % 51.3 % (24.0-44.0); MEAN CORPUSCULAR HEMOGLOBIN 31.9 pg (27.0-33.0); MEAN CORPUSCULAR HGB CONC 33.7 g/dl (32.0-36.5); MEAN CORPUSCULAR VOLUME 94.7 fl (80.0-96.0); MONO # 1.1 10^3/uL (0.0-0.8); MONO % 28.5 % (2.0-8.0); NEUTROPHILS % 13.8 % (36.0-66.0); PLATELET COUNT, AUTOMATED 296 10^3/uL (150-450); RED BLOOD COUNT 3.98 10^6/uL (4.30-6.10); WHITE BLOOD COUNT 3.7 10^3/uL (4.0-10.0)
[2023-08-11 19:52] LABS: URIC ACID 6.8 MG/DL (3.7-9.2)
[2023-08-11 19:59] LABS: ALBUMIN 3.7 G/DL (3.2-5.2); ALKALINE PHOSPHATASE 96 U/L (46-116); ALT/SGPT 19 U/L (7.0-40); AST/SGOT 9 U/L (<34); BILIRUBIN,TOTAL 0.2 MG/DL (0.3-1.2); BLOOD UREA NITROGEN 17 MG/DL (9-23); CALCIUM LEVEL 9.2 MG/DL (8.3-10.6); CARBON DIOXIDE LEVEL 30 MMOL/L (20-31); CHLORIDE LEVEL 102 MMOL/L (98-107); CHOLESTEROL LEVEL 164 MG/DL (<200); CHOLESTEROL RISK RATIO 5.92 (<5); CREATININE FOR GFR 1.13 MG/DL (0.70-1.30); GLOMERULAR FILTRATION RATE > 60.0 (>49); GLUCOSE, FASTING 77 MG/DL (74-106); HDL CHOLESTEROL 27.7 MG/DL (>40); LDL CHOLESTEROL 87.9 MG/DL (<100); NON-HDL-C 136.3 MG/DL; POTASSIUM SERUM 4.1 MMOL/L (3.5-5.1); SODIUM LEVEL 139 MMOL/L (136-145); TRIGLYCERIDES LEVEL 242 MG/DL (<150)
[2023-08-11 20:12] LABS: NEUTROPHILS # 0.5 10^3/uL (1.5-8.5)
[2023-08-11 20:16] LABS: HEMOGLOBIN A1c 5.3 % (4.0-6.0)
== END ==
LOC: M WUC 15:16
PROVIDERS: ATTEND Nurse Practitioner Family
DX: R73.03 Prediabetes (principal); D72.820 Lymphocytosis (symptomatic); E78.5 Hyperlipidemia, unspecified

== ENCOUNTER → 2023-10-15 | Outpatient (REF) | payer BC ==
[~2023-10-15] MED LIST changes: +LURA80TA PO; +QUET50TA4 PO
[2023-10-15 22:45] LABS: PSA SCREENING 1.34 NG/ML (< 4.00)
[2023-10-15 22:46] LABS: ALBUMIN 4.1 G/DL (3.2-5.2); ALKALINE PHOSPHATASE 91 U/L (46-116); ALT/SGPT 24 U/L (7.0-40); AST/SGOT 15 U/L (<34); BILIRUBIN,TOTAL 0.4 MG/DL (0.3-1.2); BLOOD UREA NITROGEN 22 MG/DL (9-23); CALCIUM LEVEL 9.3 MG/DL (8.3-10.6); CARBON DIOXIDE LEVEL 30 MMOL/L (20-31); CHLORIDE LEVEL 105 MMOL/L (98-107); CREATININE FOR GFR 1.12 MG/DL (0.70-1.30); GLOMERULAR FILTRATION RATE > 60.0 (>49); GLUCOSE, FASTING 84 MG/DL (74-106); POTASSIUM SERUM 4.7 MMOL/L (3.5-5.1); SODIUM LEVEL 140 MMOL/L (136-145); TOTAL PROTEIN 7.1 G/DL (5.7-8.2)
== END ==
LOC: M LAB REF 21:40 → M WUC 21:40
PROVIDERS: ATTEND Nurse Practitioner Family
DX: Z12.5 Encounter for screening for malignant neoplasm of prostate (principal); E78.5 Hyperlipidemia, unspecified

== ENCOUNTER → 2024-02-09 | Outpatient (CLI) | payer BC ==
[~2024-02-09] MED LIST changes: +BUPR-597 PO; -BUPR300T92 PO
[2024-02-09 16:48] LABS: BASO % 0.6 % (0.0-1.0); EOS # 0.1 10^3/uL (0.0-0.5); EOS % 3.1 % (0.0-3.0); HEMATOCRIT 39.2 % (42.0-52.0); HEMOGLOBIN 12.9 g/dl (13.5-17.5); LYMPH # 1.6 10^3/uL (1.5-5.0); LYMPH % 45.5 % (24.0-44.0); MEAN CORPUSCULAR HEMOGLOBIN 31.1 pg (27.0-33.0); MEAN CORPUSCULAR HGB CONC 32.9 g/dl (32.0-36.5); MEAN CORPUSCULAR VOLUME 94.5 fl (80.0-96.0); MONO # 0.9 10^3/uL (0.0-0.8); MONO % 25.4 % (2.0-8.0); NEUTROPHILS % 25.4 % (36.0-66.0); PLATELET COUNT, AUTOMATED 235 10^3/uL (150-450); RED BLOOD COUNT 4.15 10^6/uL (4.30-6.10); WHITE BLOOD COUNT 3.5 10^3/uL (4.0-10.0)
[2024-02-09 16:49] LABS: URIC ACID 8.1 MG/DL (3.7-9.2)
[2024-02-09 16:51] LABS: CHOLESTEROL RISK RATIO 4.25 (<5); HDL CHOLESTEROL 31.7 MG/DL (>40); LDL CHOLESTEROL 77.1 MG/DL (<100); NON-HDL-C 103.3 MG/DL
[2024-02-09 17:11] LABS: NEUTROPHILS # 0.9 10^3/uL (1.5-8.5)
[2024-02-09 17:17] LABS: HEMOGLOBIN A1c 5.5 % (4.0-6.0)
== END ==
LOC: M WUC 13:42
PROVIDERS: ATTEND Nurse Practitioner Family
DX: R73.03 Prediabetes (principal); D72.820 Lymphocytosis (symptomatic); E78.5 Hyperlipidemia, unspecified

== ENCOUNTER → 2024-02-24 | Outpatient (CLI) | payer BC ==
[2024-02-24 17:27] LABS: HEMOGLOBIN A1c 5.5 % (4.0-6.0)
[2024-02-24 17:43] LABS: CHOLESTEROL RISK RATIO 4.54 (<5); HDL CHOLESTEROL 30.8 MG/DL (>40); LDL CHOLESTEROL 85.8 MG/DL (<100); NON-HDL-C 109.2 MG/DL
== END ==
LOC: M WUC 13:38
PROVIDERS: ATTEND Psychiatry & Neurology Psychiatry
DX: Z79.899 Other long term (current) drug therapy (principal)

== ENCOUNTER → 2024-08-17 | Outpatient (CLI) | payer BC ==
[2024-08-17 19:24] LABS: THYROID STIMULATING HORMONE 4.222 uIU/ML (0.55-4.78)
[2024-08-17 19:26] LABS: FREE T4 0.99 NG/DL (0.89-1.76)
[2024-08-17 19:27] LABS: BASO % 0.9 % (0.0-1.0); EOS # 0.1 10^3/uL (0.0-0.5); EOS % 2.5 % (0.0-3.0); HEMATOCRIT 38.4 % (42.0-52.0); HEMOGLOBIN 12.7 g/dl (13.5-17.5); LYMPH # 1.8 10^3/uL (1.5-5.0); LYMPH % 42.2 % (24.0-44.0); MEAN CORPUSCULAR HEMOGLOBIN 31.4 pg (27.0-33.0); MEAN CORPUSCULAR HGB CONC 33.1 g/dl (32.0-36.5); MONO # 0.9 10^3/uL (0.0-0.8); NEUTROPHILS # 1.4 10^3/uL (1.5-8.5); NEUTROPHILS % 33.2 % (36.0-66.0); PLATELET COUNT, AUTOMATED 296 10^3/uL (150-450); RED BLOOD COUNT 4.04 10^6/uL (4.30-6.10); URIC ACID 6.6 MG/DL (3.7-9.2); WHITE BLOOD COUNT 4.3 10^3/uL (4.0-10.0)
[2024-08-17 19:29] LABS: VALPROIC ACID (DEPAKOTE) 57.2 UG/ML (50.0-100.0)
[2024-08-17 19:30] LABS: ALBUMIN 3.8 G/DL (3.2-5.2); ALKALINE PHOSPHATASE 93 U/L (40-129); ALT/SGPT 22 U/L (7.0-40); AST/SGOT 10 U/L (<34); BILIRUBIN,TOTAL 0.4 MG/DL (0.3-1.2); BLOOD UREA NITROGEN 26 MG/DL (9-23); CALCIUM LEVEL 9.6 MG/DL (8.3-10.6); CARBON DIOXIDE LEVEL 27 MMOL/L (20-31); CHLORIDE LEVEL 103 MMOL/L (98-107); CHOLESTEROL LEVEL 155 MG/DL (<200); CREATININE FOR GFR 1.01 MG/DL (0.70-1.30); GLOMERULAR FILTRATION RATE > 60.0 (>49); GLUCOSE, FASTING 78 MG/DL (74-106); LDL CHOLESTEROL 88.6 MG/DL (<100); POTASSIUM SERUM 4.6 MMOL/L (3.5-5.1); SODIUM LEVEL 142 MMOL/L (136-145); TOTAL PROTEIN 7.1 G/DL (5.7-8.2); TRIGLYCERIDES LEVEL 177 MG/DL (<150)
[2024-08-17 19:46] LABS: HEMOGLOBIN A1c 5.6 % (4.0-6.0)
== END ==
LOC: M WUC 13:46
PROVIDERS: ATTEND Nurse Practitioner Family
DX: I10 Essential (primary) hypertension (principal); E78.5 Hyperlipidemia, unspecified; F31.81 Bipolar II disorder

== ENCOUNTER → 2025-03-26 | Outpatient (REF) | payer BC ==
[~2025-03-26] MED LIST changes: -BUPR-597 PO; +BUPR-766 PO; +DIVA-41 PO; -DIVA500T94 PO; +LISI5TAB11
== END ==
LOC: M LAB REF 20:39
PROVIDERS: ATTEND Physician Assistant
DX: R19.7 Diarrhea, unspecified (principal)

== ENCOUNTER 2025-04-11 19:22 | Inpatient (IN) | payer BC ==
[~2025-04-11] VITALS: Ht 180.3 cm; Wt 101.8 kg
[~2025-04-11 19:22] MED LIST changes: -ATOR40TA75 PO; -LURA120T PO; -QUET200T2 PO
[2025-04-11 21:32] LABS: PLATELET COUNT, AUTOMATED 401 10^3/uL (150-450)
[2025-04-11 22:00] LABS: AMPHETAMINES LEVEL URINE NEGATIVE (NEGATIVE); BARBITURATES URINE NEGATIVE (NEGATIVE); BENZODIAZEPINES URINE NEGATIVE (NEGATIVE); CANNABINOIDS URINE NEGATIVE (NEGATIVE); COCAINE METABOLITE URINE NEGATIVE (NEGATIVE); METHADONE URINE NEGATIVE (NEGATIVE); OPIATES URINE NEGATIVE (NEGATIVE); PHENCYCLIDINE URINE NEGATIVE (NEGATIVE)
[2025-04-11 22:02] LABS: ETHYL ALCOHOL (ETHANOL) < 0.003 % (0.000-0.010)
[2025-04-11 22:04] LABS: ALT/SGPT 44 U/L (7.0-40); AST/SGOT 24 U/L (<34); CALCIUM LEVEL 8.8 MG/DL (8.3-10.6); CARBON DIOXIDE LEVEL 28 MMOL/L (20-31); CHLORIDE LEVEL 104 MMOL/L (98-107); CPK CREATINE PHOSPHOKINASE 95 U/L (46-171); CREATININE FOR GFR 1.15 MG/DL (0.70-1.30); GLOMERULAR FILTRATION RATE 71.1 (>49); POTASSIUM SERUM 4.3 MMOL/L (3.5-5.1); SALICYLATE LEVEL < 3.0 MG/DL (<30); SODIUM LEVEL 142 MMOL/L (136-145)
[2025-04-11] MEDS ORDERED: ATOR40TA75 PO (22:12)
[2025-04-11] MEDS ORDERED: QUET200T2 PO (22:12)
[2025-04-11] MEDS ORDERED: LURA120T PO (22:12)
[2025-04-11] MEDS ORDERED: HOME MED LIST COMPLETE! XX SCH (22:15)
[2025-04-11] MEDS ORDERED: MAALOX 30 ML SUSP *UDC PO PRN (22:20)
[2025-04-11] MEDS ORDERED: ACETAMINOPHEN 325 MG TAB PO PRN (22:20)
[2025-04-11] MEDS ORDERED: IBUPROFEN 400 MG TAB PO PRN (22:20)
[2025-04-11] MEDS ORDERED: traZODone 50 MG TAB PO PRN (22:20)
[2025-04-11] MEDS ORDERED: MOM 30 ML SUSPENSION UDC PO PRN (22:20)
[2025-04-11 23:48] VITALS: BP 160/86; TEMP 97.6; O2SAT 100
[2025-04-12 06:35] VITALS: BP 158/79; TEMP 98.2; O2SAT 95
[2025-04-12] MEDS: buPROPion **XL** 150 MG TABLET PO SCH (12:32)
[2025-04-12] MEDS: LORazepam 0.5 MG TAB PO ONE (14:02)
[2025-04-12 16:21] VITALS: BP 132/78; TEMP 98.7; O2SAT 98
[2025-04-12] MEDS ORDERED: LURASIDONE HCL 40 MG TAB PO SCH (18:00)
[2025-04-12] MEDS: LURASIDONE HCL 20 MG TAB PO SCH (18:04)
[2025-04-12] MEDS: LURASIDONE HCL 40 MG TAB PO SCH (18:04)
[2025-04-12] MEDS: ATORVASTATIN 20 MG TAB PO SCH (20:41)
[2025-04-12] MEDS: DIVALPROEX 500 MG TAB PO SCH (20:41)
[2025-04-13 06:40] VITALS: BP 129/66; TEMP 97.4; O2SAT 98
[2025-04-13] MEDS: busPIRone 5 MG TAB PO SCH (14:40)
[2025-04-13 15:15] VITALS: BP 138/78; TEMP 97.3; O2SAT 100
[2025-04-14 06:33] VITALS: BP 141/65; TEMP 97.4; O2SAT 99
[2025-04-14 08:51] LABS: VALPROIC ACID (DEPAKOTE) 76.2 UG/ML (50.0-100.0)
[2025-04-14 08:52] LABS: CHOLESTEROL LEVEL 137.0 MG/DL (<200); CHOLESTEROL RISK RATIO 4.3 (<5); LDL CHOLESTEROL 82.6 MG/DL (<100); NON-HDL-C 105.2 MG/DL; TRIGLYCERIDES LEVEL 113.0 MG/DL (<150)
[2025-04-14 14:57] VITALS: BP 130/82; TEMP 97.5; O2SAT 99
[2025-04-15 06:30] VITALS: BP 145/65; TEMP 97.5
[2025-04-15 15:13] VITALS: BP 141/80; TEMP 97.4; O2SAT 96
[2025-04-16 06:30] VITALS: BP 131/64; TEMP 98; O2SAT 97
[2025-04-16 14:46] VITALS: BP 124/78; TEMP 97.8; O2SAT 97
[2025-04-17 06:29] VITALS: BP 140/70; TEMP 97.6; O2SAT 100
[2025-04-17 15:20] VITALS: BP 128/67; TEMP 97.5; O2SAT 97
[2025-04-18 06:32] VITALS: BP 156/85; TEMP 98.4; O2SAT 97
[2025-04-18 08:29] VITALS: BP 117/82
[2025-04-18] MEDS ORDERED: QUET300T2 PO (10:50)
[2025-04-18] MEDS ORDERED: BUPR-766 PO (10:50)
[2025-04-18] MEDS ORDERED: ATOR40TA75 PO (10:50)
[2025-04-18] MEDS ORDERED: DIVA-41 PO (10:50)
[2025-04-18] MEDS ORDERED: LATU20TA PO (10:50)
[2025-04-18] MEDS ORDERED: BUSP5TA PO (10:50)
[2025-04-18] MEDS ORDERED: LISI5TAB11 PO (10:50)
[2025-04-18] MEDS ORDERED: LATU40TA2 PO (10:50)
== END 2025-04-18 15:24 | disposition home or self-care (01) | DRG 753 ==
LOC: M ED 19:22 → M ED INP 22:19 → M PSY 23:01
PROVIDERS: ADMIT Psychiatry & Neurology Neurology; ATTEND Psychiatry & Neurology Psychiatry
DX: F31.81 Bipolar II disorder (principal); I10 Essential (primary) hypertension; F41.1 Generalized anxiety disorder; E78.00 Pure hypercholesterolemia, unspecified; Z81.8 Family history of other mental and behavioral disorders; Z79.899 Other long term (current) drug therapy

== ENCOUNTER → 2025-04-11 | Outpatient (CLI) | payer BC ==
[~2025-04-11] MED LIST changes: +ATOR40TA75 PO; -LISI5TAB11; +LISI5TAB11 PO; +LURA120T PO; +QUET200T2 PO
[2025-04-11 17:25] LABS: APPEARANCE, URINE CLEAR (CLEAR); BACTERIA, URINE AUTO NEGATIVE (NEGATIVE); BILIRUBIN, URINE AUTO NEGATIVE (NEGATIVE); BLOOD, URINE BLOOD NEGATIVE (NEGATIVE); GLUCOSE, URINE (UA) AUTO NEGATIVE (NEGATIVE); KETONE, URINE AUTO NEGATIVE (NEGATIVE); LEUKOCYTE ESTERASE, URINE AUTO NEGATIVE (NEGATIVE); MUCUS, URINE LARGE (NEGATIVE); NITRITE, URINE AUTO NEGATIVE (NEGATIVE); PROTEIN, URINE AUTO 1+ mg/dL (NEGATIVE); RBC, URINE AUTO 1 /HPF (0-3); SPECIFIC GRAVITY URINE AUTO 1.025 (1.002-1.035); SQUAMOUS EPITHELIAL CELL UR AU 0 /HPF (0-6); UROBILINOGEN, URINE AUTO 2.0 mg/dL (0.0-2.0); WBC, URINE AUTO 3 /HPF (0-3)
[2025-04-11 17:47] LABS: CALCIUM LEVEL 9.1 MG/DL (8.3-10.6); CARBON DIOXIDE LEVEL 31.0 MMOL/L (20-31); CHLORIDE LEVEL 102.0 MMOL/L (98-107); CREATININE FOR GFR 1.25 MG/DL (0.70-1.30); GLOMERULAR FILTRATION RATE 64.3 (>49); PHOSPHORUS LEVEL 4.2 MG/DL (2.4-5.1); POTASSIUM SERUM 4.2 MMOL/L (3.5-5.1); SODIUM LEVEL 143.0 MMOL/L (136-145)
== END ==
LOC: M PLALAB 14:56
PROVIDERS: ATTEND Nurse Practitioner Family
DX: R39.9 Unspecified symptoms and signs involving the genitourinary system (principal); A04.72 Enterocolitis due to Clostridium difficile, not specified as recurrent

== ENCOUNTER → 2025-08-29 | Outpatient (CLI) | payer BC ==
[~2025-08-29] MED LIST changes: +ATOR40TA75 PO; +BUSP5TA PO; +LURA120T PO; +QUET200T2 PO; +QUET300T2 PO
[2025-08-29 19:00] LABS: ALT/SGPT 36 U/L (7.0-40); AST/SGOT 27 U/L (<34); CALCIUM LEVEL 9.3 MG/DL (8.3-10.6); CARBON DIOXIDE LEVEL 27 MMOL/L (20-31); CHLORIDE LEVEL 102 MMOL/L (98-107); CHOLESTEROL LEVEL 233 MG/DL (<200); CHOLESTEROL RISK RATIO 7.61 (<5); CREATININE FOR GFR 1.16 MG/DL (0.70-1.30); GLOMERULAR FILTRATION RATE 70.3 (>49); MAGNESIUM LEVEL 1.4 MG/DL (1.8-2.4); NON-HDL-C 202.4 MG/DL; POTASSIUM SERUM 4.8 MMOL/L (3.5-5.1); SODIUM LEVEL 140 MMOL/L (136-145); TRIGLYCERIDES LEVEL 433 MG/DL (<150)
[2025-08-29 19:04] LABS: FREE T4 0.91 NG/DL (0.89-1.76)
[2025-08-29 19:15] LABS: BASO # 0.1 10^3/uL (0.0-0.2); BASO % 1.0 % (0.0-1.0); EOS # 0.1 10^3/uL (0.0-0.5); EOS % 2.6 % (0.0-3.0); LYMPH # 1.5 10^3/uL (1.5-5.0); LYMPH % 30.9 % (24.0-44.0); MONO # 1.4 10^3/uL (0.0-0.8); MONO % 27.3 % (2.0-8.0); NEUTROPHILS # 1.9 10^3/uL (1.5-8.5); NEUTROPHILS % 37.6 % (36.0-66.0); PLATELET COUNT, AUTOMATED 240 10^3/uL (150-450)
[2025-08-29 19:18] LABS: ESTIMATED AVERAGE GLUCOSE 108.0 MG/DL (60-110)
== END ==
LOC: M WUC 13:43
PROVIDERS: ATTEND Nurse Practitioner Family
DX: I10 Essential (primary) hypertension (principal); E78.5 Hyperlipidemia, unspecified; R73.03 Prediabetes; E79.0 Hyperuricemia without signs of inflammatory arthritis and tophaceous disease